=== PATIENT | male | born 1995 | race Caucasian/White ===

== ENCOUNTER 2024-03-09 01:14 | Emergency (ER) | payer MEDICAID, OTHER ==
[~2024-03-09] VITALS: Ht 30.5 cm; Wt 0.5 kg
[2024-03-09] MEDS: ONDANSETRON 4MG ODT PO ONE (02:19)
[2024-03-09] MEDS: ACETAMINOPHEN 325MG TABLET PO ONE (02:19)
[2024-03-09] MEDS ORDERED: AMOX1TAB16 MT (02:38)
[2024-03-09] MEDS ORDERED: HYDR-4001 MT (02:38)
[2024-03-09] MEDS ORDERED: IBUP-2029 MT (02:38)
[2024-03-09] MEDS ORDERED: ONDANSETRON 4MG ODT PO NR (03:00)
[2024-03-09] MEDS: AMOXICILLIN/POTASSIUM CLAVULANATE 875/125MG TAB PO ONE (03:01)
[2024-03-09] MEDS: HYDROCODONE/ACETAMINOPHEN 5/325MG TABLET PO ONE (03:02)
[2024-03-09 04:00] VITALS: BP 123/79; PULSE 85; RESP 16; TEMP 98.3
== END 2024-03-09 04:00 | disposition home or self-care (01) ==
LOC: ER 01:14
DX: S02.609A Fracture of mandible, unspecified, initial encounter for closed fracture (principal); S82.831A Other fracture of upper and lower end of right fibula, initial encounter for closed fracture; F12.10 Cannabis abuse, uncomplicated; F17.200 Nicotine dependence, unspecified, uncomplicated; Z00.00 Encounter for general adult medical examination without abnormal findings; Y04.0XXA Assault by unarmed brawl or fight, initial encounter; Y93.89 Activity, other specified; Y92.89 Other specified places as the place of occurrence of the external cause; Y99.8 Other external cause status
CPT/HCPCS: 99284; 70450; 29515; 73030; 73610; 70486; Q0162